=== PATIENT | female | born 1980 | race Caucasian/White ===

== ENCOUNTER 2024-02-25 14:23 | Emergency (ER) | payer SELFPAY ==
[~2024-02-25] VITALS: Ht 165.1 cm; Wt 70.0 kg
[2024-02-25 14:25] VITALS: BP 170/107; PULSE 104; RESP 16; TEMP 98.2; O2SAT 100
== END 2024-02-25 15:01 | disposition home or self-care (01) ==
LOC: ER 14:23
DX: Z00.00 Encounter for general adult medical examination without abnormal findings (principal); I10 Essential (primary) hypertension; Z59.00 Homelessness unspecified; Z88.0 Allergy status to penicillin
CPT/HCPCS: 99283